=== PATIENT | male | born 1990 | race Caucasian/White ===

== ENCOUNTER 2021-07-10 08:12 | Emergency (ER) | payer OTHER ==
[2021-07-10 09:16] LABS: RESPIRATORY SYNCYTIAL VIR NAA NEGATIVE (NEGATIVE)
[2021-07-10 09:19] LABS: CORONAVIRUS COVID-19 NAA POSITIVE (NEGATIVE)
--- NOTE | 2021-07-10 09:38 | EDM.PDOC ---
ED HPI GENERAL MEDICAL PROBLEM - General Chief Complaint: General Stated Complaint: POSSIBLE INFLUENZA Time Seen by Provider: 07/10/21 09:25 Source of Information: Reports: Patient, RN, RN Notes Reviewed History Limitations: Reports: No Limitations - History of Present Illness INITIAL COMMENTS - FREE TEXT/NARRATIVE: Pt presents to ER by POV stating he thinks he has the flu. He claims he tested himself at the [facility] last night and again today and was COVID negative. He is having achy, fever, nausea, and sore throat for two days. He states his kids had the flu 2 weeks ago. Hx of spine fused in May and told not to take NSAIDS. He rates the pain 6/10. Denies chest pain, or shortness of breath. Onset: Sudden Duration: Day(s): (2), Constant Location: Reports: Generalized Quality: Reports: Ache Severity: Moderate Improves with: Reports: None Worsens with: Reports: None Context: Reports: Sick Contact Associated Symptoms: Reports: No Other Symptoms Generalized Pain Score (Numeric/FACES): 6 - Related Data Allergies Allergy/AdvReac Type Severity Reaction Status Date / Time Penicillins Allergy Other Verified 07/10/21 09:28 Home Meds: Home Meds . [No Known Home Meds] 07/10/21 [History] Past Medical History Musculoskeletal History: Reports: Back Pain, Chronic - Past Surgical History Neurological Surgical History: Reports: Lumbar Spine, Spinal Fusion Social & Family History - Tobacco Use Tobacco Use Status *Q: Never Tobacco User - Caffeine Use Caffeine Use: Reports: Coffee, Energy Drinks - Recreational Drug Use Recreational Drug Use: No - Living Situation & Occupation Living situation: Reports: , with Family Occupation: Employed ED ROS GENERAL - Review of Systems Review Of Systems: Comprehensive ROS is negative, except as noted in HPI. ED EXAM, GENERAL - Physical Exam Exam: See Below Exam Limited By: No Limitations General Appearance: Alert, WD/WN, No Apparent Distress Eye Exam: Bilateral Eye: Normal Inspection Nose: Normal Inspection Throat/Mouth: Normal Lips, Normal Voice, No Airway Compromise Head: Atraumatic, Normocephalic Neck: Normal Inspection Respiratory/Chest: No Respiratory Distress, Lungs Clear, Normal Breath Sounds, No Accessory Muscle Use, Chest Non-Tender Cardiovascular: Regular Rate, Rhythm, Tachycardia GI/Abdominal: Normal Bowel Sounds, Soft, Non-Tender Extremities: Normal Inspection Neurological: Alert, Oriented, No Motor/Sensory Deficits Psychiatric: Normal Mood Skin Exam: Warm, Dry, Intact, Normal Color, No Rash Course - Vital Signs Last Recorded V/S: Last Vital Signs Temp 102.2 F H 07/10/21 09:22 Pulse 106 H 07/10/21 09:22 Resp 16 07/10/21 09:22 BP 120/71 07/10/21 09:22 Pulse Ox 97 07/10/21 09:22 - Orders/Labs/Meds Labs: Laboratory Tests 07/10/21 Range/Units 08:21 Influenza Type A RNA Negative (NEGATIVE) RSV RNA ([facility]) Negative (NEGATIVE) Influenza Type B RNA Negative (NEGATIVE) SARS-CoV-2 RNA ([facility]) Positive H (NEGATIVE) Meds: Medications Discontinued Medications Generic Name Dose Route Start Last Admin Trade Name Brad PRN Reason Stop Dose Admin Acetaminophen 1,000 mg 07/10/21 09:42 Acetaminophen 500 Mg Tab PO 07/10/21 09:43 ONETIME ONE Departure - Departure Time of Disposition: 10:00 Disposition: Home, Self-Care 01 Condition: Good Clinical Impression: COVID-19 virus infection - Discharge Information *PRESCRIPTION DRUG MONITORING PROGRAM REVIEWED*: Not Applicable *COPY OF PRESCRIPTION DRUG MONITORING REPORT IN PATIENT RSAHEED: Not Applicable Instructions: Fever, Adult, 10 Things You Can Do to Manage Your COVID-19 Symptoms at Home - [facility] (01/13/2021) Forms: ED Department Discharge Additional Instructions: Rx: Zofran 4mg Quarantine/isolate at home for 10 days from the onset of your symptoms. Use Tylenol (Acetaminophen) as needed for fevers or body aches. Follow directions on label for dosing and precautions. Drink plenty of water, Pedialyte, or Gatorade. Follow up in clinic or return to ER if you develop any difficulty breathing. Sepsis Event Note (ED) - Evaluation Sepsis Screening Result: Possible Sepsis Risk - Focused Exam Vital Signs: Vital Signs Temp Pulse Resp BP Pulse Ox 07/10/21 09:22 102.2 F H 106 H 16 120/71 97
[2021-07-10] MEDS ORDERED: Acetaminophen 500 MG Tab PO ONE (09:42)
== END 2021-07-10 10:08 | disposition home or self-care (01) ==
LOC: DL.ED 08:12
DX: U07.1 COVID-19 (principal); Z88.0 Allergy status to penicillin
CPT/HCPCS: 0241U; 99283; A9270